=== PATIENT | male | born 1965 | race Caucasian/White ===

== ENCOUNTER 2016-08-14 13:55 | Emergency (ER) | payer SELFPAY ==
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
[~2016-08-14 13:55] MED LIST: LISINOPRIL20 MG PO; NO MEDICATIONS
== END 2016-08-14 14:34 | disposition home or self-care (01) ==
LOC: SED 13:55
DX: S46.912A Strain of unspecified muscle, fascia and tendon at shoulder and upper arm level, left arm, initial encounter (principal); S50.312A Abrasion of left elbow, initial encounter; F17.210 Nicotine dependence, cigarettes, uncomplicated; I10 Essential (primary) hypertension; Z23 Encounter for immunization; V89.2XXA Person injured in unspecified motor-vehicle accident, traffic, initial encounter; Y92.410 Unspecified street and highway as the place of occurrence of the external cause
CPT/HCPCS: 72100; 73030; 90471; 90715; 99284